=== PATIENT | female | born 1945 | race Caucasian/White ===

== ENCOUNTER 2017-09-17 12:07 | Emergency (ER) | payer MEDICARE, OTHER ==
[~2017-09-17] VITALS: Ht 170.2 cm; Wt 98.5 kg
[2017-09-17 12:18] VITALS: BP 180/81; PULSE 66; RESP 16; TEMP 97.6; O2SAT 95
--- NOTE | 2017-09-17 12:39 | PD ---
HPI Chief Complaint: Chest Wall Trauma Time Seen by Provider: 12:23 Travel History International Travel<30 days: No Contact w/Intl Traveler<30days: No Traveled to known affect area: No History of Present Illness HPI This is a 71-year-old female who presents for chest wall trauma. She states that almost 2 weeks ago, she was playing pickle ball when she fell and the racquet lodged under her right breast. She had a large bruise on her right chest wall. She states that she has continued to do water aerobics with heavy upper body work and is having muscular pain along her entire torso. She is not otherwise having chest pain. This pain does not radiate to arm, neck, jaw. No associated diaphoresis or palpitations. She states that it is worse with laughing, twisting, moving her arms. She has been taking aspirin with some relief. She called her primary physician but was referred to the emergency department for x-ray. She denies any abdominal pain. No neck or back pain. No focal weakness, numbness, tingling, saddle paresthesias, bowel or bladder dysfunction. Symptoms are mild in severity. Sore in nature. She has been otherwise well recently without fever, chills, cough, congestion. PFSH Past Medical History Medical History: Denies Significant Hx Past Surgical History Narrative Surgical Tonsillectomy. Left ovarian resection Social History Alcohol Use: Yes Tobacco Use: No Substance Use: No Allergies-Medications (Allergen,Severity, Reaction): Coded Allergies: ibuprofen (Verified Allergy, Severe, Anaphylaxis, 09/17/17) latex (Verified Allergy, Intermediate, SINUS INFECTION , 09/17/17) Reported Meds & Prescriptions Reported Meds & Active Scripts Active No Active Prescriptions or Reported Medications Review of Systems Except as stated in HPI: all other systems reviewed are Neg Physical Exam Narrative GENERAL: Alert, well nourished, well appearing patient resting on the bed in no acute distress. Vital Signs reviewed SKIN: Focused skin assessment warm/dry. HEAD: Atraumatic. Normocephalic. EYES: Pupils equal and round. No scleral icterus. No injection or drainage. ENT: No nasal bleeding or discharge. Mucous membranes pink and moist. NECK: Trachea midline. No JVD. Spontaneous, painless full range of motion with no meningismus CARDIOVASCULAR: Regular rate and rhythm. No murmur appreciated. Extremities warm and well perfused with bounding peripheral pulses RESPIRATORY: No accessory muscle use. Clear to auscultation. Breath sounds equal bilaterally. Breathing easily and speaking in full sentences Chest wall: Patient denies any tenderness with palpation on chest wall but states that she has bilateral lateral and lower anterior rib pain with coughing , twisting. No crepitus. GASTROINTESTINAL: Abdomen soft, non-tender, nondistended. Normal bowel sounds. No rigid, rebound, guarding. No ecchymosis on abdomen MUSCULOSKELETAL: No obvious deformities. No clubbing. No cyanosis. No edema. Compartments are soft. No midline tenderness to palpation along entire spine NEUROLOGICAL: Awake and alert. No obvious cranial nerve deficits. Motor grossly within normal limits. Normal speech. Sensation intact. Normal gait Data Data Last Documented VS Vital Signs Date Time Temp Pulse Resp B/P (MAP) Pulse Ox O2 Delivery O2 Flow Rate FiO2 09/17/17 12:42 67 16 96 Room Air 09/17/17 12:18 97.6 180/81 (114) Orders Orders Ribs, Bilat(W/Exp Cxr-Min 4vw) (09/17/17 12:30) [facility] Medical Decision Making Medical Screen Exam Complete: Yes Emergency Medical Condition: Yes Medical Record Reviewed: Yes Interpretation(s) Chest x-ray shows no acute process, no fracture or pneumothorax Differential Diagnosis Rib fracture, contusion, chest wall strain Narrative Course The patient appears very well. She is breathing easily and speaking in full sentences. Her pain is well controlled. X-ray was performed which shows no obvious displaced fracture, no pneumothorax. I reviewed the results of the workup with the patient. She was given incentive spirometer with training. Plan for discharge with supportive care, continued aspirin, Lortab as needed for severe pain, incentive spirometer and close outpatient follow-up. Patient understands the importance of close outpatient follow-up. She understands she may require further testing and treatment as an outpatient. She understands strict return indications. She is comfortable with this plan and eager to go home. Diagnosis Primary Impression: Contusion, chest wall Qualified Codes: S20.219A - Contusion of unspecified front wall of thorax, initial encounter Additional Impression: Rib contusion Qualified Codes: S20.219A - Contusion of unspecified front wall of thorax, initial encounter Referrals: Primary Care Physician 2 days Patient Instructions: Chest Wall Pain (ED), General Instructions, Rib Contusion (ED) Additional Instructions: Continue aspirin as needed for pain. Use Warba as needed for severe pain:no alcohol or driving after this medication. Use incentive spirometer at least 10 times an hour every hour while awake. Follow up with primary physician in 2-3 days for recheck. Return with worsening symptoms Med/Other Pt SpecificInfo: Prescription(s) given Scripts Hydrocodone-Acetaminophen (Warba) 5 Mg-325 Mg Tab 1 TAB PO Q6H Y for PAIN, #12 TAB 0 Refills Prov: Tahmina Logan MD 09/17/17 Disposition: 01 DISCHARGE HOME Condition: Stable Tahmina Logan MD Sep 17, 2017 12:39
--- NOTE | 2017-09-17 13:33 | RADRPT ---
EXAM DATE/TIME: 09/17/2017 13:17 [place] COMPARISON: No previous studies available for comparison. INDICATIONS : Bilateral mid chest pain from fall two weeks ago MEDICAL HISTORY : None. SURGICAL HISTORY : None. ENCOUNTER: Initial ACUITY: 2 weeks PAIN SCORE: 8/10 LOCATION: Bilateral chest FINDINGS: Multiple views of both ribs were performed. There is no evidence of displaced fracture. No destruct charlie lesions or areas of periosteal thickening are seen. Expiratory view of the chest is negative for pneumothorax. The mediastinal structures are midline. CONCLUSION: 1. Negative for pneumothorax 2. Negative for displaced rib fracture Luan Muhammad MD FACR on September 17, 2017 at 13:30 Board Certified Radiologist. This report was verified electronically.
[2017-09-17] MEDS ORDERED: NORC5TAB PO (13:42)
== END 2017-09-17 14:10 | disposition home or self-care (01) ==
LOC: PHED 12:07
DX: S20.219A Contusion of unspecified front wall of thorax, initial encounter (principal); W01.198A Fall on same level from slipping, tripping and stumbling with subsequent striking against other object, initial encounter; Y93.69 Activity, other involving other sports and athletics played as a team or group
CPT/HCPCS: 71111; 94150; 99283